=== PATIENT | male | born 1945 | race Caucasian/White ===

== ENCOUNTER 2021-08-19 07:57 | Emergency (ER) | payer MEDICARE ==
[2021-08-19] MEDS ORDERED: ASPIRIN E.C. 8181 MG PO (08:11)
[2021-08-19] MEDS ORDERED: BP MED (08:11)
[2021-08-19 08:42] LABS: HEMATOCRIT 41.8 % (42.0-52.0); HEMOGLOBIN 13.9 g/dL (13.5-18.0); MEAN CELL VOLUME 95 fl (78-100); MEAN CORPUSCULAR HEMOGLOBIN 32 pg (27-31); MEAN CORPUSCULAR HGB CONC 33 g/dL (33-37); MEAN PLATELET VOLUME 9.7 fl (7.4-10.4); PLATELET COUNT 229 K/mm3 (130-400); RED BLOOD COUNT 4.41 M/mm3 (4.20-5.60); WHITE BLOOD COUNT 11.4 K/mm3 (4.8-10.8)
[2021-08-19 08:52] LABS: ALBUMIN 4.3 g/dL (3.4-4.8); POTASSIUM 3.7 mmol/L (3.5-5.1); SODIUM 141 mmol/L (136-145)
[2021-08-19 08:53] LABS: LYMPHOCYTE 4 % (20-51); MONOCYTE 3 % (3-10); NEUTROPHILS 93 % (42-75)
[2021-08-19 08:54] LABS: GLUCOSE 135 mg/dL (75-110)
[2021-08-19 08:55] LABS: TOTAL PROTEIN 6.6 g/dL (6.2-8.1)
[2021-08-19 08:56] LABS: CARBON DIOXIDE 22 mmol/L (23-31); TOTAL BILIRUBIN 0.7 mg/dL (0.2-1.2)
[2021-08-19 09:00] LABS: AST-SGOT 13 U/L (5-34)
[2021-08-19 09:01] LABS: ALT/SGPT 8 U/L (0-55)
[2021-08-19 09:49] LABS: URINE APPEARANCE CLEAR; URINE BILIRUBIN NEGATIVE (NEGATIVE); URINE BLOOD 250 ery/uL (NEGATIVE); URINE COLOR YELLOW; URINE GLUCOSE NEGATIVE (NEGATIVE); URINE KETONE NEGATIVE (NEGATIVE); URINE LEUKOCYTE ESTERASE NEGATIVE (NEGATIVE); URINE NITRATE NEGATIVE (NEGATIVE); URINE PROTEIN(semi-quant) TRACE (NEGATIVE); URINE UROBILINOGEN NORMAL (NORMAL)
[2021-08-19] MEDS ORDERED: TRAMADOL 50 MG TAB PO (11:08)
[2021-08-19] MEDS ORDERED: KETOROLAC10 MG PO (11:08)
[2021-08-19] MEDS ORDERED: ZOFRAN4 M2 PO (11:28)
[2021-08-19 11:33] VITALS: BP 137/81
== END 2021-08-19 11:43 | disposition home or self-care (01) ==
LOC: ED 07:57
PROVIDERS: Nurse Practitioner
DX: N13.2 Hydronephrosis with renal and ureteral calculous obstruction (principal); I10 Essential (primary) hypertension; J45.909 Unspecified asthma, uncomplicated; Z20.822 Contact with and (suspected) exposure to COVID-19
CPT/HCPCS: J1885; J2405; J3010; J7030; Q9967